=== PATIENT | male | born 1955 | race Caucasian/White ===

== ENCOUNTER 2017-11-19 16:15 | Emergency (ER) | payer SELFPAY ==
[~2017-11-19] VITALS: Ht 162.6 cm; Wt 68.0 kg
[2017-11-19 16:26] VITALS: Ht 162.6 cm; Wt 68.0 kg
[2017-11-19 17:30] VITALS: BP 154/85
== END 2017-11-19 19:09 | disposition home or self-care (01) ==
LOC: ED 16:15
DX: S43.52XA Sprain of left acromioclavicular joint, initial encounter (principal); S09.90XA Unspecified injury of head, initial encounter; E11.9 Type 2 diabetes mellitus without complications; V49.9XXA Car occupant (driver) (passenger) injured in unspecified traffic accident, initial encounter; Y93.73 Activity, racquet and hand sports; Y92.89 Other specified places as the place of occurrence of the external cause; Y99.8 Other external cause status